=== PATIENT | male | born 1940 | race Caucasian/White ===

== ENCOUNTER 2018-05-23 16:06 | Emergency (ER) | payer BC ==
[2018-05-23] MEDS ORDERED: OCTYL 2-CYANOACRYLATE 1 EACH TP ONE (16:28)
[2018-05-23] MEDS ORDERED: TETANUS/DIPHTHERIA TOXOID [ADULT] 0.5 ML VIAL IM ONE (17:40)
== END 2018-05-23 18:16 | disposition home or self-care (01) ==
LOC: EDH 16:06
DX: S91.312A Laceration without foreign body, left foot, initial encounter (principal); E78.5 Hyperlipidemia, unspecified; I10 Essential (primary) hypertension; Z88.0 Allergy status to penicillin; W45.8XXA Other foreign body or object entering through skin, initial encounter; Y93.89 Activity, other specified; Y92.832 Beach as the place of occurrence of the external cause; Y99.8 Other external cause status
CPT/HCPCS: 12002; 73630; 90471; 90714